=== PATIENT | male | born 1950 | race Two or more races ===

== ENCOUNTER → 2016-07-29 | Outpatient (CLI) | payer MEDICARE, OTHER ==
[~2016-07-29] VITALS: Ht 175.3 cm; Wt 76.5 kg
[~2016-07-29] MED LIST: ACET-66 PO; ASPI-1093 PO; ATOR20TA86 PO; BACL10TA PO; CANA300T PO; CHOL200018 PO; GABA-529 PO; GLIP5TAB11 PO; HYDR25TA PO; LACT30L PO; LOSA100T29 PO; METF10002 PO; METO25 PO; OMEG1CAP55 PO; OMEP20 PO; TRAM50TA4 PO; VITA1TAB22 PO
[2016-07-29 11:10] VITALS: BP 134/76
== END | disposition home or self-care (01) ==
LOC: SRCNTR 11:05
PROVIDERS: ATTEND Internal Medicine Cardiovascular Disease
DX: I10 Essential (primary) hypertension (principal); R07.89 Other chest pain; E11.9 Type 2 diabetes mellitus without complications; E78.5 Hyperlipidemia, unspecified; M19.90 Unspecified osteoarthritis, unspecified site; F41.9 Anxiety disorder, unspecified; F32.9 Major depressive disorder, single episode, unspecified
CPT/HCPCS: G0463

== ENCOUNTER → 2016-09-27 | Outpatient (CLI) | payer MEDICARE, OTHER ==
[~2016-09-27] VITALS: Ht 175.3 cm; Wt 74.8 kg
[~2016-09-27] MED LIST changes: -CANA300T PO; -LACT30L PO; +LINA5TAB PO; +METO-323 PO; -METO25 PO
[2016-09-27 11:23] VITALS: BP 131/66
== END | disposition home or self-care (01) ==
LOC: SRCNTR 11:03
PROVIDERS: ATTEND Internal Medicine Cardiovascular Disease
DX: I10 Essential (primary) hypertension (principal); E11.9 Type 2 diabetes mellitus without complications; E78.5 Hyperlipidemia, unspecified; M19.90 Unspecified osteoarthritis, unspecified site; R00.2 Palpitations
CPT/HCPCS: G0463

== ENCOUNTER → 2016-11-15 | Outpatient (CLI) | payer MEDICARE, OTHER ==
[~2016-11-15] VITALS: Ht 175.3 cm; Wt 74.0 kg
[~2016-11-15] MED LIST changes: +ACYC800T PO; -ASPI-1093 PO; +ASPI-1182 PO; -GABA-529 PO; +GABA-531 PO; -GLIP5TAB11 PO; -METO-323 PO; +METO25XL PO; +OMEG-136 PO; -OMEG1CAP55 PO
[2016-11-15 10:52] VITALS: BP 134/76
== END | disposition home or self-care (01) ==
LOC: SRCNTR 10:20
PROVIDERS: ATTEND Internal Medicine Cardiovascular Disease
DX: I10 Essential (primary) hypertension (principal); E11.9 Type 2 diabetes mellitus without complications; E78.5 Hyperlipidemia, unspecified; F32.9 Major depressive disorder, single episode, unspecified; R07.9 Chest pain, unspecified; M19.90 Unspecified osteoarthritis, unspecified site; Z79.82 Long term (current) use of aspirin
CPT/HCPCS: G0463

== ENCOUNTER → 2017-01-15 | Outpatient (CLI) | payer MEDICARE, OTHER ==
[~2017-01-15] VITALS: Ht 175.3 cm; Wt 73.5 kg
[~2017-01-15] MED LIST changes: -LOSA100T29 PO
[2017-01-15 10:33] VITALS: BP 130/72
== END | disposition home or self-care (01) ==
LOC: SRCNTR 10:21
PROVIDERS: ATTEND Internal Medicine Cardiovascular Disease
DX: I10 Essential (primary) hypertension (principal); E11.9 Type 2 diabetes mellitus without complications; F32.9 Major depressive disorder, single episode, unspecified; E78.5 Hyperlipidemia, unspecified; M19.90 Unspecified osteoarthritis, unspecified site; Z79.82 Long term (current) use of aspirin
CPT/HCPCS: G0463

== ENCOUNTER → 2017-03-21 | Outpatient (CLI) | payer MEDICARE, OTHER ==
[~2017-03-21] VITALS: Ht 175.3 cm; Wt 74.0 kg
[2017-03-21 10:26] VITALS: BP 136/76
== END | disposition home or self-care (01) ==
LOC: SRCNTR 10:18
PROVIDERS: ATTEND Internal Medicine Cardiovascular Disease
DX: I10 Essential (primary) hypertension (principal); E78.5 Hyperlipidemia, unspecified; E11.9 Type 2 diabetes mellitus without complications; M19.90 Unspecified osteoarthritis, unspecified site; Z79.82 Long term (current) use of aspirin
CPT/HCPCS: G0463

== ENCOUNTER → 2017-05-23 | Outpatient (CLI) | payer MEDICARE, OTHER ==
[~2017-05-23] VITALS: Ht 175.3 cm; Wt 76.0 kg
[~2017-05-23] MED LIST changes: +ACET-48 PO; -ACYC800T PO; +ASCO500 PO; -ATOR20TA86 PO; +BENZ-51 PO; +FENO160 PO; -HYDR25TA PO; +METO-558 PO
[2017-05-23 10:42] VITALS: BP 131/65
== END | disposition home or self-care (01) ==
LOC: SRCNTR 10:41
PROVIDERS: ATTEND Internal Medicine Cardiovascular Disease
DX: I10 Essential (primary) hypertension (principal); E78.5 Hyperlipidemia, unspecified; E11.9 Type 2 diabetes mellitus without complications; M19.90 Unspecified osteoarthritis, unspecified site; Z79.82 Long term (current) use of aspirin
CPT/HCPCS: G0463

== ENCOUNTER → 2017-06-18 | Outpatient (CLI) | payer MEDICARE, OTHER ==
[~2017-06-18] MED LIST changes: -ACET-66 PO; -GABA-531 PO; -METF10002 PO; +METF10004 PO; -METO25XL PO
== END | disposition home or self-care (01) ==
LOC: RADPV 13:29
PROVIDERS: ATTEND Family Medicine
DX: M19.071 Primary osteoarthritis, right ankle and foot (principal); M77.31 Calcaneal spur, right foot

== ENCOUNTER → 2017-07-18 | Outpatient (CLI) | payer MEDICARE, OTHER ==
[~2017-07-18] MED LIST changes: +HYDR25TA PO; +LOSA50TA37 PO
== END | disposition home or self-care (01) ==
LOC: LABPV 12:28
PROVIDERS: ATTEND Podiatrist Foot & Ankle Surgery
DX: M19.072 Primary osteoarthritis, left ankle and foot (principal); M77.32 Calcaneal spur, left foot; S92.902A Unspecified fracture of left foot, initial encounter for closed fracture; X58.XXXA Exposure to other specified factors, initial encounter; Y93.89 Activity, other specified; Y92.89 Other specified places as the place of occurrence of the external cause; Y99.8 Other external cause status

== ENCOUNTER → 2017-08-25 | Outpatient (CLI) | payer MEDICARE, OTHER ==
[~2017-08-25] VITALS: Ht 175.3 cm; Wt 70.0 kg
[~2017-08-25] MED LIST changes: +ATOR20TA86 PO; -BACL10TA PO; -BENZ-51 PO; -FENO160 PO
[2017-08-25 11:29] VITALS: BP 160/82
== END | disposition home or self-care (01) ==
LOC: SRCNTR 11:06
PROVIDERS: ATTEND Internal Medicine
DX: E11.9 Type 2 diabetes mellitus without complications (principal); I10 Essential (primary) hypertension; E78.5 Hyperlipidemia, unspecified; J32.9 Chronic sinusitis, unspecified
CPT/HCPCS: G0463

== ENCOUNTER → 2018-01-05 | Outpatient (CLI) | payer MEDICARE, OTHER ==
[~2018-01-05] VITALS: Ht 175.3 cm; Wt 76.0 kg
[~2018-01-05] MED LIST changes: +LOSA50TA25 PO; -LOSA50TA37 PO; +METF-446 PO; -METF10004 PO
[2018-01-05 11:47] VITALS: BP 120/65
== END | disposition home or self-care (01) ==
LOC: SRCNTR 11:26
PROVIDERS: ATTEND Internal Medicine Cardiovascular Disease
DX: R07.9 Chest pain, unspecified (principal); R00.2 Palpitations; I10 Essential (primary) hypertension; E78.5 Hyperlipidemia, unspecified; M19.90 Unspecified osteoarthritis, unspecified site
CPT/HCPCS: G0463

== ENCOUNTER → 2018-02-03 | Outpatient (CLI) | payer MEDICARE, OTHER ==
[~2018-02-03] VITALS: Ht 175.3 cm; Wt 76.0 kg
[~2018-02-03] MED LIST changes: +ASPI-989 PO; -LOSA50TA25 PO; +LOSA50TA64 PO
[2018-02-03 14:31] VITALS: BP 135/62
== END | disposition home or self-care (01) ==
LOC: SRCNTR 14:28
PROVIDERS: ATTEND Internal Medicine Cardiovascular Disease
DX: I10 Essential (primary) hypertension (principal); R07.9 Chest pain, unspecified; E11.9 Type 2 diabetes mellitus without complications; E78.5 Hyperlipidemia, unspecified; R00.2 Palpitations; M19.90 Unspecified osteoarthritis, unspecified site; R53.1 Weakness; R53.83 Other fatigue
CPT/HCPCS: G0463

== ENCOUNTER → 2018-04-09 | Outpatient (CLI) | payer MEDICARE, OTHER ==
[~2018-04-09] VITALS: Ht 175.3 cm; Wt 74.5 kg
[~2018-04-09] MED LIST changes: -ACET-48 PO; -ASPI-1182 PO
[2018-04-09 14:50] VITALS: BP 160/72
== END | disposition home or self-care (01) ==
LOC: SRCNTR 14:23
PROVIDERS: ATTEND Internal Medicine Cardiovascular Disease
DX: E78.5 Hyperlipidemia, unspecified (principal); M19.90 Unspecified osteoarthritis, unspecified site; E11.9 Type 2 diabetes mellitus without complications; I10 Essential (primary) hypertension; R07.9 Chest pain, unspecified
CPT/HCPCS: G0463

== ENCOUNTER → 2018-10-09 | Outpatient (CLI) | payer MEDICARE, OTHER ==
[~2018-10-09] VITALS: Ht 175.3 cm; Wt 75.3 kg
[~2018-10-09] MED LIST changes: +ACET-3207 PO; +AMLO5TAB9 PO; +BISA10SU11 PR; +CHOL100018 PO; +DAPA5TAB PO; +INSU100V SQ; +MERO1I IV; +MOM30 PO; +ONDA-104 PO; +OXYC-38 PO; +VANC500FZ IV
[2018-10-09 10:44] VITALS: BP 132/68
== END | disposition home or self-care (01) ==
LOC: SRCNTR 10:07
PROVIDERS: ATTEND Internal Medicine Cardiovascular Disease
DX: E78.5 Hyperlipidemia, unspecified (principal); I10 Essential (primary) hypertension; E11.9 Type 2 diabetes mellitus without complications; M19.90 Unspecified osteoarthritis, unspecified site; M54.5 Low back pain
CPT/HCPCS: G0463

== ENCOUNTER → 2019-01-13 | Outpatient (CLI) | payer MEDICARE, OTHER ==
[~2019-01-13] VITALS: Ht 175.3 cm; Wt 74.0 kg
[2019-01-13 11:56] VITALS: BP 124/63
== END | disposition home or self-care (01) ==
LOC: SRCNTR 11:55
PROVIDERS: ATTEND Internal Medicine Cardiovascular Disease
DX: I10 Essential (primary) hypertension (principal); E78.5 Hyperlipidemia, unspecified; E11.9 Type 2 diabetes mellitus without complications; M54.5 Low back pain; M19.90 Unspecified osteoarthritis, unspecified site; Z79.82 Long term (current) use of aspirin
CPT/HCPCS: G0463

== ENCOUNTER 2019-01-22 11:59 | Inpatient (IN) | payer MEDICARE, OTHER ==
[~2019-01-22] VITALS: Ht 175.3 cm; Wt 77.3 kg
[~2019-01-22 11:59] MED LIST changes: -ACET-3207 PO; -BISA10SU11 PR; -CHOL100018 PO; -INSU100V SQ; -MERO1I IV; -MOM30 PO; -OXYC-38 PO; -VANC500FZ IV
[2019-01-22 12:17] LABS: GLUCOSE,POINT OF CARE 171 MG/DL (70-110)
[2019-01-22] MEDS ORDERED: CHOL100018 PO (12:58)
[2019-01-22] MEDS ORDERED: VANCOMYCIN HCL 1 GM/D5% WATER 200 ML IV ONE (13:00)
[2019-01-22] MEDS ORDERED: OxyCODONE HCL/ACETAMINOPHEN 5-325 MG TABLET PO PRN (13:15)
[2019-01-22] MEDS ORDERED: ACETAMINOPHEN 325 MG TABLET PO PRN (13:15)
[2019-01-22] MEDS ORDERED: PIPERACILLIN/TAZO 3.375 GM/D5W 50 ML IV ONE (13:30)
[2019-01-22] MEDS ORDERED: DEXTROSE 50%-WATER 25 GM/50 ML SYRINGE IVP PRN (13:30)
[2019-01-22 13:40] LABS: BASOPHILS % (AUTO) 0.8 % (0.0-2.0); EOSINOPHILS % (AUTO) 2.8 % (1.0-6.0); HEMOGLOBIN 11.9 g/dL (13.5-17.5); LYMPHOCYTES # (AUTO) 3.9 K/uL (1.0-4.8); LYMPHOCYTES % (AUTO) 44.4 % (22.0-44.0); MEAN CORPUSCULAR HGB CONC 33.2 G/dL (31.0-37.0); MEAN CORPUSCULAR VOLUME 88 fL (80-100); MONOCYTES # (AUTO) 0.7 K/uL (0.1-1.0); MONOCYTES % (AUTO) 7.6 % (2.0-9.0); NEUTROPHILS # (AUTO) 3.9 K/uL (1.8-7.7); NEUTROPHILS % (AUTO) 44.4 % (40.0-70.0); PLATELET COUNT (AUTO) 305 K/uL (150-450); RED BLOOD CELL COUNT(AUTO) 4.11 MIL/uL (4.50-5.90); RED CELL DISTRIBUTION WIDTH 14.3 % (11.5-14.5)
[2019-01-22 13:51] LABS: ANION GAP 8 mmol/L (8-16); CALCIUM, TOTAL 8.9 mg/dL (8.8-10.5); CARBON DIOXIDE 28 mmol/L (22-29); CHLORIDE 101 mmol/L (98-107); CREATININE 0.88 mg/dL (0.60-1.30); GLOMERULAR FILTR. RATE CALC > 60 mL/min (>60); GLUCOSE,RANDOM 156 mg/dL (70-110); POTASSIUM 4.4 mmol/L (3.5-5.1); SODIUM SERUM 137 mmol/L (136-145); UREA NITROGEN, BLOOD 18 mg/dL (7-18)
[2019-01-22] MEDS ORDERED: PNEUMOCOCCAL VACCINE POLYVALENT 0.5 ML VIAL [PPSV23] IM ONE (17:15)
[2019-01-22 17:47] VITALS: BP 165/73
[2019-01-22] MEDS: MORPHINE SULFATE 2 MG/ML SYRINGE IVP PRN (17:50)
[2019-01-22] MEDS: PIPERACILLIN/TAZO 3.375 GM/D5W 50 ML IV SCH (19:44)
[2019-01-22] MEDS: ATORVASTATIN CALCIUM 20 MG TABLET PO SCH (19:51)
[2019-01-22] MEDS: DOCUSATE SODIUM 100 MG CAPSULE PO SCH (19:52)
[2019-01-22 20:00] VITALS: BP 141/69
[2019-01-22] MEDS ORDERED: VANCOMYCIN HCL 500 MG in DEXTROSE 5%-WATER 100 ML IV ONE (21:00)
[2019-01-22] MEDS: INSULIN LISPRO 100 UNITS/ML SQ PRN (21:40)
[2019-01-22 22:14] LABS: GLUCOMETER DEV NAME(LOC) 4E.2; GLUCOSE,POINT OF CARE 116 MG/DL (70-110)
[2019-01-22 22:15] LABS: GLUCOMETER DEV NAME(LOC) 4E.2; GLUCOSE,POINT OF CARE 146 MG/DL (70-110)
[2019-01-23 00:17] VITALS: BP 117/62
[2019-01-23] MEDS: PIPERACILLIN/TAZO 3.375 GM/D5W 50 ML IV SCH ×4 (02:17→20:18)
[2019-01-23] MEDS: MORPHINE SULFATE 2 MG/ML SYRINGE IVP PRN (02:45)
[2019-01-23 04:00] VITALS: BP 128/72
[2019-01-23] MEDS: VANCOMYCIN HCL 1 GM/D5% WATER 200 ML IV SCH ×2 (06:24→19:04)
[2019-01-23 08:25] LABS: ANION GAP 7 mmol/L (8-16); CALCIUM, TOTAL 8.8 mg/dL (8.8-10.5); CARBON DIOXIDE 28 mmol/L (22-29); CHLORIDE 103 mmol/L (98-107); CREATININE 0.79 mg/dL (0.60-1.30); GLOMERULAR FILTR. RATE CALC > 60 mL/min (>60); GLUCOSE,RANDOM 159 mg/dL (70-110); SODIUM SERUM 138 mmol/L (136-145); UREA NITROGEN, BLOOD 11 mg/dL (7-18)
[2019-01-23] MEDS: ASPIRIN 81 MG CHEWABLE TABLET PO SCH (08:48)
[2019-01-23] MEDS: FAMOTIDINE 20 MG TABLET PO SCH (08:48)
[2019-01-23] MEDS: DOCUSATE SODIUM 100 MG CAPSULE PO SCH ×2 (08:48→20:18)
[2019-01-23] MEDS ORDERED: DEXTROSE 5%-0.45% SODIUM CHL 1,000 ML IV ONE (10:15)
[2019-01-23] MEDS ORDERED: LIDOCAINE 1%/EPI 1:200,000/PF 10 ML VIAL ONE (11:08)
[2019-01-23] MEDS ORDERED: SODIUM CL IRRIG SOLN BAG 3,000 ML IRRIG ONE (11:09)
[2019-01-23] MEDS ORDERED: SODIUM CHLORIDE 0.9% 0 ML ONE (11:09)
[2019-01-23] MEDS ORDERED: BACITRACIN 50,000 UNITS/VIAL ONE (11:10)
[2019-01-23] MEDS ORDERED: SODIUM CHLORIDE 0.9% 0 ML IV ONE (11:10)
[2019-01-23] MEDS ORDERED: MORPHINE SULFATE 2 MG/ML SYRINGE IVP ONE ×2 (11:15→19:00)
[2019-01-23] MEDS ORDERED: ESMOLOL HCL 10 MG/ML 10 ML VIAL IVP ONE (12:00)
[2019-01-23] MEDS ORDERED: FentaNYL CITRATE-PF 100 MCG/2 ML VIAL IVP ONE (12:00)
[2019-01-23] MEDS ORDERED: ONDANSETRON HCL 4 MG/2 ML VIAL IVP ONE (12:00)
[2019-01-23] MEDS ORDERED: PROPOFOL 1% 20 ML VIAL IVP ONE (12:00)
[2019-01-23] MEDS ORDERED: LIDOCAINE/PF 2% 5 ML SYRINGE IVP ONE (12:00)
[2019-01-23] MEDS ORDERED: RINGERS SOLUTION,LACTATED 1,000 ML IV ONE (13:54)
[2019-01-23] MEDS ORDERED: SUGAMMADEX SODIUM 200 MG/2 ML VIAL IVP ONE (15:07)
[2019-01-23] MEDS ORDERED: ACETAMINOPHEN 1000 MG/ISO-OSM 100 ML IV ONE ×2 (15:38→16:00)
[2019-01-23] MEDS ORDERED: HYDROmorphone 2 MG/ML SYRINGE ONE (15:38)
[2019-01-23] MEDS ORDERED: FentaNYL CITRATE-PF 100 MCG/2 ML VIAL IVP PRN (16:00)
[2019-01-23] MEDS ORDERED: HYDROmorphone 2 MG/ML SYRINGE IVP PRN (16:00)
[2019-01-23 18:52] LABS: GLUCOMETER DEV NAME(LOC) 4E.2; GLUCOSE,POINT OF CARE 126 MG/DL (70-110)
[2019-01-23 18:52] LABS: GLUCOMETER DEV NAME(LOC) 4E.2; GLUCOSE,POINT OF CARE 131 MG/DL (70-110)
[2019-01-23] MEDS ORDERED: CYCLOBENZAPRINE HCL 10 MG TABLET PO ONE (19:00)
[2019-01-23 20:10] VITALS: BP 144/76
[2019-01-23] MEDS: CYCLOBENZAPRINE HCL 10 MG TABLET PO SCH (20:18)
[2019-01-23] MEDS: ATORVASTATIN CALCIUM 20 MG TABLET PO SCH (20:18)
[2019-01-23] MEDS: INSULIN LISPRO 100 UNITS/ML SQ PRN (20:20)
[2019-01-24 00:05] VITALS: BP 148/72
[2019-01-24] MEDS: OxyCODONE HCL/ACETAMINOPHEN 5-325 MG TABLET PO PRN ×4 (00:16→16:11)
[2019-01-24] MEDS: PIPERACILLIN/TAZO 3.375 GM/D5W 50 ML IV SCH ×4 (02:07→20:33)
[2019-01-24 04:20] VITALS: BP 111/59
[2019-01-24 04:57] LABS: GLUCOMETER DEV NAME(LOC) 6N.2; GLUCOSE,POINT OF CARE 239 MG/DL (70-110)
[2019-01-24] MEDS: VANCOMYCIN HCL 1 GM/D5% WATER 200 ML IV SCH ×2 (06:04→18:18)
[2019-01-24] MEDS: INSULIN LISPRO 100 UNITS/ML SQ PRN ×4 (06:04→20:41)
[2019-01-24 07:50] LABS: BASOPHILS % (AUTO) 0.5 % (0.0-2.0); HEMATOCRIT 39.1 % (41-53); HEMOGLOBIN 12.8 g/dL (13.5-17.5); LYMPHOCYTES # (AUTO) 4.2 K/uL (1.0-4.8); LYMPHOCYTES % (AUTO) 47.1 % (22.0-44.0); MEAN CORPUSCULAR HEMOGLOBIN 28.6 pg (26.0-34.0); MEAN CORPUSCULAR HGB CONC 32.6 G/dL (31.0-37.0); MEAN CORPUSCULAR VOLUME 88 fL (80-100); MONOCYTES # (AUTO) 0.6 K/uL (0.1-1.0); MONOCYTES % (AUTO) 7.3 % (2.0-9.0); NEUTROPHILS # (AUTO) 3.6 K/uL (1.8-7.7); NEUTROPHILS % (AUTO) 41.1 % (40.0-70.0); PLATELET COUNT (AUTO) 355 K/uL (150-450); RED BLOOD CELL COUNT(AUTO) 4.45 MIL/uL (4.50-5.90)
[2019-01-24] MEDS: OXYGEN THERAPY IH SCH ×2 (08:00→20:00)
[2019-01-24 08:05] VITALS: BP 137/77
[2019-01-24 08:17] LABS: ANION GAP 7 mmol/L (8-16); CALCIUM, TOTAL 9.3 mg/dL (8.8-10.5); CARBON DIOXIDE 31 mmol/L (22-29); CHLORIDE 102 mmol/L (98-107); CREATININE 0.89 mg/dL (0.60-1.30); GLOMERULAR FILTR. RATE CALC > 60 mL/min (>60); GLUCOSE,RANDOM 170 mg/dL (70-110); POTASSIUM 3.7 mmol/L (3.5-5.1); SODIUM SERUM 140 mmol/L (136-145); UREA NITROGEN, BLOOD 12 mg/dL (7-18)
[2019-01-24] MEDS: FAMOTIDINE 20 MG TABLET PO SCH (08:40)
[2019-01-24] MEDS: CYCLOBENZAPRINE HCL 10 MG TABLET PO SCH ×3 (08:40→20:40)
[2019-01-24] MEDS: ASPIRIN 81 MG CHEWABLE TABLET PO SCH (08:40)
[2019-01-24] MEDS: DOCUSATE SODIUM 100 MG CAPSULE PO SCH ×2 (08:40→20:40)
[2019-01-24] MEDS: MAGNESIUM HYDROXIDE SUSPENSION 30 ML UDCUP PO PRN (12:17)
[2019-01-24 12:50] VITALS: BP 123/65
[2019-01-24 15:47] VITALS: BP 137/69
[2019-01-24] MEDS ORDERED: SODIUM CHLORIDE 0.9% 500 ML IV ONE (18:20)
[2019-01-24 20:05] VITALS: BP 148/80
[2019-01-24 20:14] LABS: GLUCOMETER DEV NAME(LOC) 4E.2; GLUCOSE,POINT OF CARE 142 MG/DL (70-110)
[2019-01-24 20:14] LABS: GLUCOMETER DEV NAME(LOC) 4E.2; GLUCOSE,POINT OF CARE 185 MG/DL (70-110)
[2019-01-24 20:14] LABS: GLUCOMETER DEV NAME(LOC) 4E.2; GLUCOSE,POINT OF CARE 160 MG/DL (70-110)
[2019-01-24] MEDS: ATORVASTATIN CALCIUM 20 MG TABLET PO SCH (20:40)
[2019-01-25] VITALS (7 sets, daily range): BP systolic 106–166; BP diastolic 51–87
[2019-01-25] MEDS: OxyCODONE HCL/ACETAMINOPHEN 5-325 MG TABLET PO PRN ×2 (00:29→15:50)
[2019-01-25] MEDS: PIPERACILLIN/TAZO 3.375 GM/D5W 50 ML IV SCH ×4 (01:40→19:55)
[2019-01-25 02:15] LABS: GLUCOMETER DEV NAME(LOC) 4E.2; GLUCOSE,POINT OF CARE 237 MG/DL (70-110)
[2019-01-25 06:11] LABS: ANION GAP 4 mmol/L (8-16); CALCIUM, TOTAL 8.8 mg/dL (8.8-10.5); CARBON DIOXIDE 31 mmol/L (22-29); CHLORIDE 105 mmol/L (98-107); CREATININE 0.88 mg/dL (0.60-1.30); GLOMERULAR FILTR. RATE CALC > 60 mL/min (>60); GLUCOSE,RANDOM 157 mg/dL (70-110); POTASSIUM 4.3 mmol/L (3.5-5.1); SODIUM SERUM 140 mmol/L (136-145); UREA NITROGEN, BLOOD 10 mg/dL (7-18); VANCOMYCIN,RANDOM 9.7 mcg/mL (25.0-50.0)
[2019-01-25] MEDS: VANCOMYCIN HCL 1 GM/D5% WATER 200 ML IV SCH (06:24)
[2019-01-25] MEDS: INSULIN LISPRO 100 UNITS/ML SQ PRN ×4 (06:25→20:33)
[2019-01-25] MEDS: DOCUSATE SODIUM 100 MG CAPSULE PO SCH ×2 (09:19→20:30)
[2019-01-25] MEDS: FAMOTIDINE 20 MG TABLET PO SCH (09:19)
[2019-01-25] MEDS: CYCLOBENZAPRINE HCL 10 MG TABLET PO SCH ×3 (09:19→20:31)
[2019-01-25] MEDS: ASPIRIN 81 MG CHEWABLE TABLET PO SCH (09:20)
[2019-01-25 19:48] LABS: GLUCOMETER DEV NAME(LOC) 4E.2; GLUCOSE,POINT OF CARE 180 MG/DL (70-110)
[2019-01-25] MEDS: TraMADol HCL 50 MG TABLET PO PRN (19:54)
[2019-01-25] MEDS: ATORVASTATIN CALCIUM 20 MG TABLET PO SCH (20:30)
[2019-01-25 21:12] LABS: GLUCOMETER DEV NAME(LOC) 6N.2; GLUCOSE,POINT OF CARE 176 MG/DL (70-110)
[2019-01-25 21:12] LABS: GLUCOMETER DEV NAME(LOC) 6N.2; GLUCOSE,POINT OF CARE 142 MG/DL (70-110)
[2019-01-25 21:12] LABS: GLUCOMETER DEV NAME(LOC) 6N.2; GLUCOSE,POINT OF CARE 201 MG/DL (70-110)
[2019-01-25 21:12] LABS: GLUCOMETER DEV NAME(LOC) 6N.2; GLUCOSE,POINT OF CARE 281 MG/DL (70-110)
[2019-01-25 21:12] LABS: GLUCOMETER DEV NAME(LOC) 6N.2; GLUCOSE,POINT OF CARE 224 MG/DL (70-110)
[2019-01-26] MEDS: PIPERACILLIN/TAZO 3.375 GM/D5W 50 ML IV SCH ×2 (02:32→08:56)
[2019-01-26 05:41] VITALS: BP 142/73
[2019-01-26 06:03] LABS: ANION GAP 3 mmol/L (8-16); CALCIUM, TOTAL 9.2 mg/dL (8.8-10.5); CARBON DIOXIDE 34 mmol/L (22-29); CHLORIDE 103 mmol/L (98-107); GLOMERULAR FILTR. RATE CALC > 60 mL/min (>60); GLUCOSE,RANDOM 137 mg/dL (70-110); POTASSIUM 4.6 mmol/L (3.5-5.1); SODIUM SERUM 140 mmol/L (136-145); UREA NITROGEN, BLOOD 11 mg/dL (7-18)
[2019-01-26 07:53] VITALS: BP 139/80
[2019-01-26] MEDS: OXYGEN THERAPY IH SCH (08:00)
[2019-01-26] MEDS: FAMOTIDINE 20 MG TABLET PO SCH (08:54)
[2019-01-26] MEDS: ASPIRIN 81 MG CHEWABLE TABLET PO SCH (08:54)
[2019-01-26] MEDS: CYCLOBENZAPRINE HCL 10 MG TABLET PO SCH ×3 (08:54→20:09)
[2019-01-26] MEDS: DOCUSATE SODIUM 100 MG CAPSULE PO SCH ×2 (08:54→20:09)
[2019-01-26] MEDS: MAGNESIUM HYDROXIDE SUSPENSION 30 ML UDCUP PO PRN (09:02)
[2019-01-26] MEDS: MORPHINE SULFATE 2 MG/ML SYRINGE IVP PRN ×2 (09:02→16:23)
[2019-01-26 10:30] LABS: INR 1.1 (0.9-1.1)
[2019-01-26] MEDS ORDERED: HEPARIN SODIUM 1000 UNITS/NS 500 ML ONE (10:48)
[2019-01-26] MEDS ORDERED: LIDOCAINE/PF 1% 5 ML VIAL ONE (10:49)
[2019-01-26 11:22] VITALS: BP 140/78
[2019-01-26] MEDS: INSULIN LISPRO 100 UNITS/ML SQ PRN ×3 (13:08→20:30)
[2019-01-26 14:12] LABS: GLUCOMETER DEV NAME(LOC) 4E.2; GLUCOSE,POINT OF CARE 120 MG/DL (70-110)
[2019-01-26 14:12] LABS: GLUCOMETER DEV NAME(LOC) 6N.2; GLUCOSE,POINT OF CARE 149 MG/DL (70-110)
[2019-01-26] MEDS: MEROPENEM 2 GM in SODIUM CHLORIDE 0.9% 100 ML IV SCH ×2 (15:23→22:22)
[2019-01-26 16:07] VITALS: BP 122/66
[2019-01-26] MEDS: BISACODYL 10 MG RECTAL RECTAL SUPPOSITORY PR PRN (16:23)
[2019-01-26 18:33] LABS: GLUCOMETER DEV NAME(LOC) 6N.2; GLUCOSE,POINT OF CARE 221 MG/DL (70-110)
[2019-01-26] MEDS: ATORVASTATIN CALCIUM 20 MG TABLET PO SCH (20:09)
[2019-01-26 20:46] VITALS: BP 162/78
[2019-01-26 20:46] LABS: GLUCOMETER DEV NAME(LOC) 4E.2; GLUCOSE,POINT OF CARE 163 MG/DL (70-110)
[2019-01-26] MEDS ORDERED: SODIUM CHLORIDE 0.9% 250 ML IV ONE (22:30)
[2019-01-26 23:30] VITALS: BP 148/72
[2019-01-27 04:46] VITALS: BP 156/80
[2019-01-27 05:55] LABS: ANION GAP 2 mmol/L (8-16); CALCIUM, TOTAL 9.2 mg/dL (8.8-10.5); CARBON DIOXIDE 33 mmol/L (22-29); CHLORIDE 104 mmol/L (98-107); CREATININE 0.94 mg/dL (0.60-1.30); GLOMERULAR FILTR. RATE CALC > 60 mL/min (>60); GLUCOSE,RANDOM 172 mg/dL (70-110); POTASSIUM 4.7 mmol/L (3.5-5.1); SODIUM SERUM 139 mmol/L (136-145); UREA NITROGEN, BLOOD 12 mg/dL (7-18)
[2019-01-27] MEDS: INSULIN LISPRO 100 UNITS/ML SQ PRN ×4 (05:56→21:47)
[2019-01-27] MEDS: OxyCODONE HCL/ACETAMINOPHEN 5-325 MG TABLET PO PRN (06:25)
[2019-01-27] MEDS: MEROPENEM 2 GM in SODIUM CHLORIDE 0.9% 100 ML IV SCH ×3 (06:25→23:07)
[2019-01-27 07:01] LABS: GLUCOMETER DEV NAME(LOC) 6N.2; GLUCOSE,POINT OF CARE 162 MG/DL (70-110)
[2019-01-27 07:48] VITALS: BP 152/75
[2019-01-27] MEDS: CYCLOBENZAPRINE HCL 10 MG TABLET PO SCH ×3 (09:09→21:03)
[2019-01-27] MEDS: FAMOTIDINE 20 MG TABLET PO SCH (09:09)
[2019-01-27] MEDS: ASPIRIN 81 MG CHEWABLE TABLET PO SCH (09:10)
[2019-01-27] MEDS: DOCUSATE SODIUM 100 MG CAPSULE PO SCH ×2 (09:10→21:00)
[2019-01-27] MEDS ORDERED: LIDOCAINE/PF 1% 5 ML VIAL ONE (10:49)
[2019-01-27] MEDS ORDERED: HEPARIN SODIUM 1000 UNITS/NS 500 ML ONE (10:49)
[2019-01-27 11:00] VITALS: BP 172/75
[2019-01-27] MEDS ORDERED: SODIUM CHLORIDE 0.9% 1,000 ML ONE (14:16)
[2019-01-27 15:12] VITALS: BP 156/74
[2019-01-27 19:48] LABS: GLUCOMETER DEV NAME(LOC) 6N.2; GLUCOSE,POINT OF CARE 147 MG/DL (70-110)
[2019-01-27 19:49] LABS: GLUCOMETER DEV NAME(LOC) 6N.2; GLUCOSE,POINT OF CARE 250 MG/DL (70-110)
[2019-01-27 20:55] VITALS: BP 144/84
[2019-01-27] MEDS: ATORVASTATIN CALCIUM 20 MG TABLET PO SCH (21:03)
[2019-01-27 23:46] VITALS: BP 134/69
[2019-01-28 05:30] VITALS: BP 138/81
[2019-01-28] MEDS: MEROPENEM 2 GM in SODIUM CHLORIDE 0.9% 100 ML IV SCH ×3 (05:40→21:51)
[2019-01-28] MEDS: INSULIN LISPRO 100 UNITS/ML SQ PRN ×3 (05:47→17:58)
[2019-01-28 07:25] VITALS: BP 156/87
[2019-01-28 07:36] LABS: GLUCOMETER DEV NAME(LOC) 4E.2; GLUCOSE,POINT OF CARE 187 MG/DL (70-110)
[2019-01-28 07:36] LABS: GLUCOMETER DEV NAME(LOC) 4E.2; GLUCOSE,POINT OF CARE 262 MG/DL (70-110)
[2019-01-28 07:43] LABS: ANION GAP 6 mmol/L (8-16); CARBON DIOXIDE 30 mmol/L (22-29); CHLORIDE 105 mmol/L (98-107); CREATININE 0.83 mg/dL (0.60-1.30); GLOMERULAR FILTR. RATE CALC > 60 mL/min (>60); GLUCOSE,RANDOM 183 mg/dL (70-110); POTASSIUM 4.1 mmol/L (3.5-5.1); SODIUM SERUM 141 mmol/L (136-145); UREA NITROGEN, BLOOD 12 mg/dL (7-18)
[2019-01-28] MEDS: OXYGEN THERAPY IH SCH ×2 (08:00→20:00)
[2019-01-28] MEDS: DOCUSATE SODIUM 100 MG CAPSULE PO SCH ×2 (08:51→20:13)
[2019-01-28] MEDS: ASPIRIN 81 MG CHEWABLE TABLET PO SCH (08:51)
[2019-01-28] MEDS: CYCLOBENZAPRINE HCL 10 MG TABLET PO SCH ×3 (08:51→20:13)
[2019-01-28] MEDS: FAMOTIDINE 20 MG TABLET PO SCH (08:51)
[2019-01-28] MEDS: TraMADol HCL 50 MG TABLET PO PRN ×2 (09:06→18:00)
[2019-01-28 11:01] VITALS: BP 162/86
[2019-01-28 11:59] LABS: GLUCOMETER DEV NAME(LOC) 4E.2; GLUCOSE,POINT OF CARE 216 MG/DL (70-110)
[2019-01-28] MEDS ORDERED: VANCOMYCIN HCL 1 GM/D5% WATER 200 ML IV ONE (15:00)
[2019-01-28 15:15] VITALS: BP 153/80
[2019-01-28 19:39] VITALS: BP 153/88
[2019-01-28] MEDS: ATORVASTATIN CALCIUM 20 MG TABLET PO SCH (20:13)
[2019-01-28 20:46] LABS: GLUCOMETER DEV NAME(LOC) 4E.2; GLUCOSE,POINT OF CARE 116 MG/DL (70-110)
[2019-01-28] MEDS: VANCOMYCIN HCL 750 MG in DEXTROSE 5%-WATER 250 ML IV SCH (23:08)
[2019-01-28 23:12] VITALS: BP 135/76
[2019-01-29] MEDS: MEROPENEM 2 GM in SODIUM CHLORIDE 0.9% 100 ML IV SCH ×2 (05:25→13:26)
[2019-01-29] MEDS: TraMADol HCL 50 MG TABLET PO PRN ×2 (05:30→15:36)
[2019-01-29] MEDS: INSULIN LISPRO 100 UNITS/ML SQ PRN ×3 (05:35→17:12)
[2019-01-29 05:48] VITALS: BP 122/55
[2019-01-29 05:49] LABS: GLUCOMETER DEV NAME(LOC) 4E.2; GLUCOSE,POINT OF CARE 153 MG/DL (70-110)
[2019-01-29] MEDS: VANCOMYCIN HCL 750 MG in DEXTROSE 5%-WATER 250 ML IV SCH ×2 (06:25→14:22)
[2019-01-29 06:56] LABS: ANION GAP 5 mmol/L (8-16); CALCIUM, TOTAL 9.1 mg/dL (8.8-10.5); CARBON DIOXIDE 31 mmol/L (22-29); CHLORIDE 103 mmol/L (98-107); GLOMERULAR FILTR. RATE CALC > 60 mL/min (>60); GLUCOSE,RANDOM 165 mg/dL (70-110); SODIUM SERUM 139 mmol/L (136-145); UREA NITROGEN, BLOOD 11 mg/dL (7-18)
[2019-01-29 07:10] VITALS: BP 161/88
[2019-01-29] MEDS: OXYGEN THERAPY IH SCH (08:00)
[2019-01-29] MEDS: DOCUSATE SODIUM 100 MG CAPSULE PO SCH (08:09)
[2019-01-29] MEDS: FAMOTIDINE 20 MG TABLET PO SCH (08:09)
[2019-01-29] MEDS: ASPIRIN 81 MG CHEWABLE TABLET PO SCH (08:09)
[2019-01-29] MEDS ORDERED: AmLODIPine BESYLATE 5 MG TABLET PO SCH (09:00)
[2019-01-29] MEDS ORDERED: HYDROCHLOROTHIAZIDE 25 MG TABLET PO SCH (09:00)
[2019-01-29] MEDS ORDERED: LOSARTAN POTASSIUM 50 MG TABLET PO SCH (09:00)
[2019-01-29] MEDS: CYCLOBENZAPRINE HCL 10 MG TABLET PO SCH ×2 (09:47→16:13)
[2019-01-29] MEDS: BISACODYL 10 MG RECTAL RECTAL SUPPOSITORY PR PRN (10:42)
[2019-01-29 11:10] VITALS: BP 138/74
[2019-01-29 11:18] LABS: GLUCOMETER DEV NAME(LOC) 6N.2; GLUCOSE,POINT OF CARE 213 MG/DL (70-110)
[2019-01-29 15:20] VITALS: BP 113/71
[2019-01-29] MEDS ORDERED: LACTULOSE 20 GM/30 ML SOLUTION UDCUP PO ONE (15:30)
[2019-01-29] MEDS ORDERED: MERO1I IV (16:46)
[2019-01-29] MEDS ORDERED: VANC500FZ IV (16:50)
[2019-01-29] MEDS ORDERED: ACET-3207 PO (16:52)
[2019-01-29] MEDS ORDERED: BISA10SU11 PR (16:56)
[2019-01-29] MEDS ORDERED: MOM30 PO (16:58)
[2019-01-29] MEDS ORDERED: OXYC-38 PO (17:00)
[2019-01-29] MEDS ORDERED: INSU100V SQ (17:01)
[2019-01-29 18:02] LABS: GLUCOMETER DEV NAME(LOC) 4E.2; GLUCOSE,POINT OF CARE 242 MG/DL (70-110)
[2019-01-30 11:58] LABS: GLUCOMETER DEV NAME(LOC) 6N.2; GLUCOSE,POINT OF CARE 160 MG/DL (70-110)
== END 2019-01-29 17:30 | DRG 30 ==
LOC: EMS 12:00 → 4E 15:59
PROVIDERS: ADMIT Internal Medicine; ATTEND Internal Medicine
PROC: 0J970ZZ Drainage of Back Subcutaneous Tissue and Fascia, Open Approach (ICD-10-PCS; 2019-01-23)
PROC: 0HB6XZZ Excision of Back Skin, External Approach (ICD-10-PCS; 2019-01-23)
PROC: 00PV0MZ Removal of Neurostimulator Lead from Spinal Cord, Open Approach (ICD-10-PCS; principal; 2019-01-23 13:45)
PROC: 02HV33Z Insertion of Infusion Device into Superior Vena Cava, Percutaneous Approach (ICD-10-PCS; 2019-01-27)
PROC: B548ZZA Ultrasonography of Superior Vena Cava, Guidance (ICD-10-PCS; 2019-01-27)
PROC: B5181ZA Fluoroscopy of Superior Vena Cava using Low Osmolar Contrast, Guidance (ICD-10-PCS; 2019-01-27)
DX: T85.733A Infection and inflammatory reaction due to implanted electronic neurostimulator of spinal cord, electrode (lead), initial encounter (principal); E11.9 Type 2 diabetes mellitus without complications; G89.29 Other chronic pain; I25.10 Atherosclerotic heart disease of native coronary artery without angina pectoris; I10 Essential (primary) hypertension; M54.5 Low back pain; Y83.1 Surgical operation with implant of artificial internal device as the cause of abnormal reaction of the patient, or of later complication, without mention of misadventure at the time of the procedure; E78.00 Pure hypercholesterolemia, unspecified; Z82.49 Family history of ischemic heart disease and other diseases of the circulatory system; Z79.899 Other long term (current) drug therapy; Z86.73 Personal history of transient ischemic attack (TIA), and cerebral infarction without residual deficits; Z83.3 Family history of diabetes mellitus
CPT/HCPCS: 36245; 36569; 76937; 87015; 87070; 87075; 87101; 87205; 87206; 97161; G0378; J0131; J1170; J1644; J2001; J2185; J2270; J2405; J2543; J2704; J3010; J3370; J3490; J7030; J7040; J7050; J7060; J7120

== ENCOUNTER → 2019-03-29 | Outpatient (CLI) | payer MEDICARE, OTHER ==
[~2019-03-29] VITALS: Ht 175.3 cm; Wt 72.0 kg
[~2019-03-29] MED LIST changes: +ACET-3207 PO; +ASPI-629 PO; -ASPI-989 PO; +BISA10SU11 PR; +CHOL100018 PO; -CHOL200018 PO; +HYDR-1475 PO; -HYDR25TA PO; +INSU100V SQ; +LOSA-88 PO; -LOSA50TA64 PO; +MERO1I IV; +MOM30 PO; +OXYC-38 PO; +VANC500FZ IV
[2019-03-29 11:27] VITALS: BP 159/82
== END | disposition home or self-care (01) ==
LOC: SRCNTR 11:26
PROVIDERS: ATTEND Internal Medicine Cardiovascular Disease
DX: I10 Essential (primary) hypertension (principal); E11.9 Type 2 diabetes mellitus without complications; R07.9 Chest pain, unspecified; M54.5 Low back pain; M19.90 Unspecified osteoarthritis, unspecified site; R00.2 Palpitations; E78.5 Hyperlipidemia, unspecified; G89.4 Chronic pain syndrome
CPT/HCPCS: G0463

== ENCOUNTER → 2019-10-20 | Outpatient (CLI) | payer MEDICARE, OTHER ==
[~2019-10-20] VITALS: Ht 175.3 cm; Wt 72.0 kg
[~2019-10-20] MED LIST changes: +AMLO-257 PO; -AMLO5TAB9 PO; -ASPI-629 PO; +ASPI-989 PO; -LOSA-88 PO; +LOSA25TA21 PO; +LOSA50TA37 PO
[2019-10-20 10:28] VITALS: BP 116/63
== END | disposition home or self-care (01) ==
LOC: SRCNTR 10:20
PROVIDERS: ATTEND Internal Medicine Cardiovascular Disease
DX: E11.9 Type 2 diabetes mellitus without complications (principal); I10 Essential (primary) hypertension; E78.5 Hyperlipidemia, unspecified; G89.4 Chronic pain syndrome; R00.2 Palpitations; M19.90 Unspecified osteoarthritis, unspecified site; Z79.899 Other long term (current) drug therapy
CPT/HCPCS: G0463; Z7500

== ENCOUNTER → 2020-01-03 | Outpatient (CLI) | payer MEDICARE, OTHER ==
[~2020-01-03] VITALS: Ht 175.3 cm; Wt 71.0 kg
[~2020-01-03] MED LIST changes: -LOSA50TA37 PO
[2020-01-03 11:48] VITALS: BP 147/77
== END | disposition home or self-care (01) ==
LOC: SRCNTR 11:03
PROVIDERS: ATTEND Internal Medicine Cardiovascular Disease
DX: E78.5 Hyperlipidemia, unspecified (principal); E11.9 Type 2 diabetes mellitus without complications; I10 Essential (primary) hypertension; M19.90 Unspecified osteoarthritis, unspecified site; R07.89 Other chest pain; G89.29 Other chronic pain; R00.2 Palpitations
CPT/HCPCS: G0463; Z7500

== ENCOUNTER → 2020-03-06 | Outpatient (CLI) | payer MEDICARE, OTHER ==
[~2020-03-06] VITALS: Ht 175.3 cm; Wt 70.9 kg
[2020-03-06 11:52] VITALS: BP 127/71
== END | disposition home or self-care (01) ==
LOC: SRCNTR 11:22
PROVIDERS: ATTEND Internal Medicine Cardiovascular Disease
DX: E11.9 Type 2 diabetes mellitus without complications (principal); I10 Essential (primary) hypertension; E78.5 Hyperlipidemia, unspecified; R07.89 Other chest pain; G89.4 Chronic pain syndrome; R00.2 Palpitations; M19.91 Primary osteoarthritis, unspecified site
CPT/HCPCS: G0463; Z7500

== ENCOUNTER → 2020-05-19 | Outpatient (CLI) | payer MEDICARE, OTHER ==
[~2020-05-19] VITALS: Ht 175.3 cm; Wt 71.0 kg
[~2020-05-19] MED LIST changes: -CHOL100018 PO; +CHOL100044 PO; -HYDR-1475 PO; +HYDR25TA2 PO
[2020-05-19 11:16] VITALS: BP 120/65
== END | disposition home or self-care (01) ==
LOC: SRCNTR 10:50
PROVIDERS: ATTEND Internal Medicine Cardiovascular Disease
DX: E11.9 Type 2 diabetes mellitus without complications (principal); I10 Essential (primary) hypertension; E78.5 Hyperlipidemia, unspecified; M19.90 Unspecified osteoarthritis, unspecified site; R07.89 Other chest pain; R00.2 Palpitations
CPT/HCPCS: G0463

== ENCOUNTER → 2020-07-31 | Outpatient (CLI) | payer MEDICARE, OTHER ==
[~2020-07-31] VITALS: Ht 175.3 cm; Wt 70.0 kg
[2020-07-31 10:36] VITALS: BP 130/75
== END | disposition home or self-care (01) ==
LOC: SRCNTR 10:21
PROVIDERS: ATTEND Internal Medicine Cardiovascular Disease
DX: I10 Essential (primary) hypertension (principal); E11.9 Type 2 diabetes mellitus without complications; E78.5 Hyperlipidemia, unspecified; R10.9 Unspecified abdominal pain; M19.90 Unspecified osteoarthritis, unspecified site; R07.89 Other chest pain; R00.2 Palpitations
CPT/HCPCS: G0463; Z7500

== ENCOUNTER → 2020-10-17 | Outpatient (CLI) | payer MEDICARE, OTHER ==
[~2020-10-17] VITALS: Ht 172.7 cm; Wt 69.5 kg
[~2020-10-17] MED LIST changes: +CHOL-35 PO; -CHOL100044 PO
[2020-10-17 15:06] VITALS: BP 124/60
== END | disposition home or self-care (01) ==
LOC: SRCNTR 14:43
PROVIDERS: ATTEND Internal Medicine Cardiovascular Disease
DX: E11.9 Type 2 diabetes mellitus without complications (principal); I10 Essential (primary) hypertension; E78.5 Hyperlipidemia, unspecified; R07.89 Other chest pain; R00.2 Palpitations; M19.90 Unspecified osteoarthritis, unspecified site; R10.9 Unspecified abdominal pain
CPT/HCPCS: 93005; G0463

== ENCOUNTER → 2020-12-19 | Outpatient (CLI) | payer MEDICARE, OTHER ==
[~2020-12-19] VITALS: Ht 175.3 cm; Wt 69.8 kg
[2020-12-19 14:11] VITALS: BP 128/89
== END | disposition home or self-care (01) ==
LOC: SRCNTR 14:01
PROVIDERS: ATTEND Internal Medicine Cardiovascular Disease
DX: E11.9 Type 2 diabetes mellitus without complications (principal); I10 Essential (primary) hypertension; E78.5 Hyperlipidemia, unspecified; R07.89 Other chest pain; R00.2 Palpitations; M19.90 Unspecified osteoarthritis, unspecified site; R42 Dizziness and giddiness
CPT/HCPCS: G0463; Z7500

== ENCOUNTER → 2021-02-28 | Outpatient (CLI) | payer MEDICARE, OTHER ==
[~2021-02-28] VITALS: Ht 175.3 cm; Wt 70.0 kg
[~2021-02-28] MED LIST changes: +LOSA-370 PO; -LOSA25TA21 PO
[2021-02-28 10:36] VITALS: BP 123/65
== END | disposition home or self-care (01) ==
LOC: SRCNTR 10:17
PROVIDERS: ATTEND Internal Medicine Cardiovascular Disease
DX: E11.9 Type 2 diabetes mellitus without complications (principal); I10 Essential (primary) hypertension; E78.5 Hyperlipidemia, unspecified; R07.89 Other chest pain; R00.2 Palpitations; M19.90 Unspecified osteoarthritis, unspecified site
CPT/HCPCS: G0463

== ENCOUNTER → 2021-04-30 | Outpatient (CLI) | payer MEDICARE, OTHER ==
[~2021-04-30] VITALS: Ht 175.3 cm; Wt 71.0 kg
[~2021-04-30] MED LIST changes: -LOSA-370 PO; +LOSA-381 PO; +PANT-31 PO
[2021-04-30 10:43] VITALS: BP 120/59
== END | disposition home or self-care (01) ==
LOC: SRCNTR 10:31
PROVIDERS: ATTEND Internal Medicine Cardiovascular Disease
DX: I10 Essential (primary) hypertension (principal); E78.5 Hyperlipidemia, unspecified; E11.9 Type 2 diabetes mellitus without complications; R07.89 Other chest pain; R06.09 Other forms of dyspnea; R00.2 Palpitations; M19.90 Unspecified osteoarthritis, unspecified site
CPT/HCPCS: G0463

== ENCOUNTER → 2021-05-15 | Outpatient (CLI) | payer MEDICARE, OTHER ==
[~2021-05-15] MED LIST changes: -OMEP20 PO
== END | disposition home or self-care (01) ==
LOC: RADMN 09:56
PROVIDERS: ATTEND Internal Medicine Cardiovascular Disease
DX: I25.10 Atherosclerotic heart disease of native coronary artery without angina pectoris (principal); R59.0 Localized enlarged lymph nodes; R06.02 Shortness of breath; Z90.49 Acquired absence of other specified parts of digestive tract
CPT/HCPCS: 71250

== ENCOUNTER → 2021-07-02 | Outpatient (CLI) | payer MEDICARE, OTHER ==
[~2021-07-02] VITALS: Ht 175.3 cm; Wt 68.7 kg
[~2021-07-02] MED LIST changes: -CHOL-35 PO; +CHOL25TA4 PO; +MAGN-169 PO; -MOM30 PO; +NALO25TA4 PO
[2021-07-02 10:42] VITALS: BP 128/67
== END | disposition home or self-care (01) ==
LOC: SRCNTR 10:21
PROVIDERS: ATTEND Internal Medicine Cardiovascular Disease
DX: E78.2 Mixed hyperlipidemia (principal); M19.90 Unspecified osteoarthritis, unspecified site; R06.02 Shortness of breath; N28.9 Disorder of kidney and ureter, unspecified; I10 Essential (primary) hypertension; R07.89 Other chest pain; R00.2 Palpitations; Z79.899 Other long term (current) drug therapy
CPT/HCPCS: G0463; Z7500

== ENCOUNTER → 2021-07-04 | Outpatient (CLI) | payer MEDICARE, OTHER ==
[~2021-07-04] VITALS: Ht 175.3 cm; Wt 69.3 kg
[2021-07-04 14:08] VITALS: BP 124/67
== END | disposition home or self-care (01) ==
LOC: SRCNTR 12:38 → EDSTATUS 12:40
PROVIDERS: ATTEND Internal Medicine Critical Care Medicine
DX: I10 Essential (primary) hypertension (principal); E11.9 Type 2 diabetes mellitus without complications; E78.5 Hyperlipidemia, unspecified; M19.90 Unspecified osteoarthritis, unspecified site; R07.89 Other chest pain; R06.02 Shortness of breath; R00.2 Palpitations; N28.1 Cyst of kidney, acquired; J84.9 Interstitial pulmonary disease, unspecified
CPT/HCPCS: G0463; Z7500

== ENCOUNTER 2022-01-19 07:50 | Emergency (ER) | payer MEDICARE, OTHER ==
[~2022-01-19] VITALS: Ht 170.2 cm; Wt 71.4 kg
[~2022-01-19 07:50] MED LIST changes: -ACET-3207 PO; -AMLO-257 PO; -ASPI-989 PO; -BISA10SU11 PR; -DAPA5TAB PO; -INSU100V SQ; -MAGN-169 PO; -MERO1I IV; -METO-558 PO; -OMEG-136 PO; -ONDA-104 PO; -OXYC-38 PO; +TRAM-559 PO; -TRAM50TA4 PO; -VANC500FZ IV
[2022-01-19 08:22] VITALS: BP 133/55
[2022-01-19] MEDS ORDERED: KETOROLAC TROMETHAMINE 60 MG/2 ML VIAL IM ONE (09:30)
[2022-01-19] MEDS ORDERED: HYDR-4723 PO (12:00)
[2022-01-19] MEDS ORDERED: POLY238P PO (12:00)
== END 2022-01-19 12:12 | disposition home or self-care (01) ==
LOC: EMS 07:57
DX: J32.0 Chronic maxillary sinusitis (principal); M26.621 Arthralgia of right temporomandibular joint; R59.1 Generalized enlarged lymph nodes; E11.9 Type 2 diabetes mellitus without complications; E78.00 Pure hypercholesterolemia, unspecified; I10 Essential (primary) hypertension; Z90.49 Acquired absence of other specified parts of digestive tract
CPT/HCPCS: 99284; 70486; 82962; 96372; J1885

== ENCOUNTER → 2023-08-13 | Outpatient (CLI) | payer MEDICARE, OTHER ==
[~2023-08-13] VITALS: Ht 175.3 cm; Wt 73.0 kg
[~2023-08-13] MED LIST changes: +ATOR20TA PO; -ATOR20TA86 PO; +HYDR-4062 PO; +METF-1211 PO; +POLY238P PO; -TRAM-559 PO; +TRAM50TA5 PO; -VITA1TAB22 PO; +[UNRECOGNIZED DRUG - CODE] PO
[2023-08-13 11:12] VITALS: BP 126/70; PULSE 78; RESP 16; TEMP 98.9; O2SAT 98
== END | disposition home or self-care (01) ==
LOC: SRCNTR 10:51
PROVIDERS: ATTEND Internal Medicine Cardiovascular Disease
DX: M54.50 Low back pain, unspecified (principal); E11.9 Type 2 diabetes mellitus without complications; I10 Essential (primary) hypertension; E78.5 Hyperlipidemia, unspecified; M19.90 Unspecified osteoarthritis, unspecified site; Z79.899 Other long term (current) drug therapy
CPT/HCPCS: G0463

== ENCOUNTER → 2023-10-27 | Outpatient (CLI) | payer MEDICARE, OTHER ==
[~2023-10-27] VITALS: Ht 175.3 cm; Wt 70.0 kg
[~2023-10-27] MED LIST changes: -HYDR-4062 PO; -HYDR25TA2 PO; -NALO25TA4 PO; -PANT-31 PO; -POLY238P PO
[2023-10-27 11:00] VITALS: BP 130/70; PULSE 78; RESP 16; TEMP 99.2; O2SAT 97
== END | disposition home or self-care (01) ==
LOC: SRCNTR 10:33
PROVIDERS: ATTEND Internal Medicine Cardiovascular Disease
DX: I10 Essential (primary) hypertension (principal); E11.9 Type 2 diabetes mellitus without complications; E78.5 Hyperlipidemia, unspecified; M19.90 Unspecified osteoarthritis, unspecified site; Z79.899 Other long term (current) drug therapy
CPT/HCPCS: 93005; G0463